=== PATIENT | female | born 1955 | race Caucasian/White ===

== ENCOUNTER 2025-03-27 11:03 | Outpatient (NON) | payer SELFPAY ==
[2025-03-27 11:13] LABS: Add Urine Microscopic? YES; Appearance Urine Clear (Clear); Bilirubin Urine Negative (Negative); Blood Urine 2+ (Negative); Color Urine Light Yellow (Yellow); Glucose Urine UA Negative (Negative); Ketones Urine Negative (Negative); Leukocyte Esterase Ur Trace (Negative); Nitrate Urine Negative (Negative); Protein Urine Negative (Negative); Specific Grav Ur 1.025 (1.010-1.020); Urobilinogen Urine 0.2 mg/dL (0.2-1.0)
[2025-03-27 11:23] LABS: Bacteria Urine Trace /hpf; Squamous Epithelial Cell Urine Few /hpf (Few); WBC Urine 0-3 /hpf (0-3)
== END 2025-03-27 11:04 | disposition home or self-care (01) ==
PROVIDERS: PCP Family Medicine; Visit Provider Family Medicine
DX: N39.0 Urinary tract infection, site not specified (principal)
CPT/HCPCS: 81001; 87086; 87181

== ENCOUNTER 2025-07-18 07:18 | Outpatient (NON) | payer MEDICARE, SELFPAY ==
[2025-07-18 08:48] LABS: Hematocrit 38.0 % (35.0-42.0); Hemoglobin 12.1 g/dL (11.7-13.8); Mean Corpuscular HGB Conc 31.8 g/dL (32-36); Mean Corpuscular Hemoglobin 32.1 pg (27.0-31.0); Mean Corpuscular Volume 100.8 fL (78.0-102.0); Platelet Count Result 169 K/mm3 (150-420); Red Blood Count 3.77 M/mm3 (4.20-5.40); White Blood Count 7.1 K/mm3 (4.8-10.8)
[2025-07-18 08:54] LABS: Alanine Aminotransferase 8 U/L (6-35); Albumin Level 3.6 g/dL (3.5-5.1); Alkaline Phosphatase 66 U/L (38-126); Aspartate Amino Transferase 24 U/L (14-36); Bilirubin,Total 0.6 mg/dL (0.2-1.3); Blood Urea Nitrogen 7 mg/dL (7-17); Calcium 9.9 mg/dL (8.4-10.2); Carbon Dioxide 30 mmol/L (22-30); Cholesterol 230 mg/dL (0-200); Estimated Glomerular Filt Rate > 60; Glucose 76 mg/dL (65-110); HDL Direct 54 mg/dL; Total Protein 5.5 g/dL (6.3-8.2); Triglycerides 175 mg/dL (<150)
[2025-07-18 09:26] LABS: Thyroid Stimulating Hormone 2.150 uIU/mL (0.465-4.680)
[2025-07-18 09:35] LABS: Anion Gap 10 mmol/L (4-12); Chloride 97 mmol/L (98-107); Osmolality Calculated 281 mOsm/kg (285-295); Potassium 4.1 mmol/L (3.4-5.0); Sodium 137 mmol/L (137-145)
[2025-07-18 10:01] LABS: Vitamin B12 > 1000.0 pg/mL (239-931)
[2025-07-18 10:46] LABS: Hemoglobin A1C < 4.7 % (<5.7)
== END 2025-07-18 07:19 | disposition home or self-care (01) ==
LOC: CHSLAB 07:25
PROVIDERS: PCP Family Medicine
DX: J96.01 Acute respiratory failure with hypoxia (principal); F33.3 Major depressive disorder, recurrent, severe with psychotic symptoms; I50.30 Unspecified diastolic (congestive) heart failure; I50.9 Heart failure, unspecified; J44.9 Chronic obstructive pulmonary disease, unspecified; Z13.1 Encounter for screening for diabetes mellitus
CPT/HCPCS: 36415; 80053; 80061; 82607; 82746; 83036; 84436; 84443; 85027

== ENCOUNTER 2025-08-02 00:15 | Emergency (ER) | payer MEDICARE, SELFPAY ==
[2025-08-02] VITALS (58 sets, daily range): BP systolic 44–142; BP diastolic 18–100; PULSE 51–132; RESP 7–22; TEMP 36.6; O2SAT 65–100
--- NOTE | ~2025-08-02 | XR_ITS ---
EXAMINATION: XR chest 1V portable DATE: 08/02/2025 00:56 INDICATION: Unresponsive TECHNIQUE: frontal view of the chest was obtained. COMPARISON: None FINDINGS: Costochondral calcifications project over the medial aspect of the mid to lower lungs. Linear discoid atelectasis/scarring at the medial left lower lung zone. No pulmonary edema, pleural effusion or pneumothorax. The cardiomediastinal silhouette is normal. Mild upper thoracic levoscoliosis with mild spondylosis. IMPRESSION: 1. Linear discoid atelectasis/scarring at the left lower lung zone. Reviewed, dictated and finalized at location A.
--- NOTE | ~2025-08-02 | XR_ITS ---
EXAMINATION: XR chest ET placement DATE: 08/02/2025 02:31 INDICATION: Endotracheal tube placement TECHNIQUE: frontal view of the chest was obtained. COMPARISON: Chest radiograph dated 08/02/2025 FINDINGS: Endotracheal tube tip 5 mm above the sly. Nasogastric tube with proximal side-port below level of the gastroesophageal junction distal tip collimated beyond the inferior margin of the field of imaging. Mild increased interstitial pattern in the bilateral infrahilar regions more prominent on the left. No pleural effusion or pneumothorax. Heart size is normal. IMPRESSION: 1. Endotracheal tube tip 5 mm above the sly. Could consider withdrawal by 1 cm. 2. Increased infrahilar interstitial pattern which could be due to mild pulmonary edema, aspiration or pneumonia. Reviewed, dictated and finalized at location A. IMPRESSION: 1. Endotracheal tube tip 5 mm above the sly. Could consider withdrawal by 1 cm. 2. Increased infrahilar interstitial pattern which could be due to mild pulmona ry edema, aspiration or pneumonia.
--- NOTE | ~2025-08-02 | XR_ITS ---
EXAMINATION: XR abdomen gastric tube insert DATE: 08/02/2025 00:56 INDICATION: Nasogastric tube placement TECHNIQUE: A supine view of the abdomen and lower chest was obtained for evaluation of feeding tube placement. COMPARISON: None. FINDINGS: Nasogastric tube tip in proximal side port in the distal body of the gas distended stomach. There is additional gas scattered throughout multiple loops of large and small bowel in the abdomen and pelvis without tiki dilation and with favor ileus over obstruction. Advanced left hip osteoarthritis with destructive change with loss of bone stock at the cephalad third of the femoral head and at the superior left acetabulum. There is secondary to superolateral subluxation of the femoral head within the enlarged acetabulum. IMPRESSION: 1. Nasogastric tube in stomach. 2. Gaseous distention of the stomach and gas throughout multiple loops of bowel which are not frankly dilated with differential including ileus or early/partial small bowel obstruction. 3. Advanced left hip osteoarthritis. Reviewed, dictated and finalized at location A. IMPRESSION: 1. Nasogastric tube in stomach. 2. Gaseous distention of the stomach and gas throughout multiple loops of bowel which are not frankly dilated with differential including ileus or early/parti al small bowel obstruction. 3. Advanced left hip osteoarthritis.
--- NOTE | ~2025-08-02 | CT_ITS ---
EXAMINATION: CT brain wo con DATE: 08/02/2025 03:50 INDICATION: Unresponsiveness TECHNIQUE: Computed tomography (CT) of the head was performed without intravenous contrast. Sagittal and coronal reconstructions were performed. The mA was adjusted according to patient size. Iterative reconstruction technique was employed. The dose-length product was 605.33 mGy-cm. COMPARISON: None FINDINGS: No fracture. No acute intracranial hemorrhage, acute infarction or abnormal extra axial fluid collection. Symmetric prominence of the sulci and subarachnoid spaces overlying the convexities consistent with mild age-appropriate diffuse cerebral volume loss. Ventricles are normal and symmetric. No mass/mass effect. Small amount of dependently layering mucus/fluid in the left sphenoid sinus and posterior most right ethmoid air cell. The orbits and mastoid air cells are normal. IMPRESSION: 1. Normal aging brain. Reviewed, dictated and finalized at location A. IMPRESSION: 1. Normal aging brain.
--- NOTE | 2025-08-02 00:20 | PC.NURSE ---
SEVERAL ATTEMPTS HAVE BEEN MADE TO CONTACT .
--- NOTE | 2025-08-02 00:21 | PC.NURSE ---
JACOB WITH RT AT THE BEDSIDE
--- NOTE | 2025-08-02 00:22 | PC.NURSE ---
BLOOD GLUCOSE 178
[2025-08-02] MEDS: SUCCINYLCHOLINE CHLORIDE 20 MG/ML 10 ML VIAL 100 MG IV PUSH (00:26)
[2025-08-02] MEDS: ETOMIDATE 20 MG/10 ML AMPUL IV PUSH (00:26)
--- NOTE | 2025-08-02 00:27 | PC.NURSE ---
DR JAIN AND RT AT THE BEDSIDE FOR INTUBATION.
--- NOTE | 2025-08-02 00:29 | PC.NURSE ---
INTUBATION COMPLETED BY DR JAIN. 7.5 ETT TUBE, 23 AT THE LIP. + COLOR CHANGE , + AUSCULTATION TO ALL MOFFETT.
--- NOTE | 2025-08-02 00:35 | PC.NURSE ---
DIFFICULTY WITH VENTILATION. SWITCHED TO BAG MASK, CONTINUES TO BE DIFFICULTY TO BAG. DR JAIN HAS DECIDED TO REMOVE ETT TUBE.
--- NOTE | 2025-08-02 00:36 | PC.NURSE ---
LMA PLACED BY DR JAIN, +COLOR CHANGE, +AUSCULTATION OF LUNGS.
--- NOTE | 2025-08-02 00:42 | PC.NURSE ---
NG TUBE 14 F PLACED TO RIGHT NARE, +ASPIRATION AND AUSCULATION
--- NOTE | 2025-08-02 00:44 | PC.NURSE ---
XRAY AT THE BEDSIDE
--- NOTE | 2025-08-02 00:45 | PC.NURSE ---
POLICE SENT TO ADDRESS ON FILE TO ATTEMPT TO FIND .
[2025-08-02] MEDS: SODIUM CHLORIDE 0.9% IV 1,000 ML 999 ML IV CONT (00:47)
[2025-08-02] MEDS: PROPOFOL IV EMULSION 100 ML 1.58 MG IV CONT (00:52)
--- NOTE | 2025-08-02 00:57 | PC.NURSE ---
HAYDE WITH LAB UNABLE TO DRAW BLOOD. ARTERIAL BLOOD DRAWN FROM LEFT GROIN BY DR JAIN. BLOOD WORK GIVEN TO HAYDE WHO IS IN THE ROOM
--- NOTE | 2025-08-02 01:15 | ED_ITS ---
HPI - SOB/Dyspnea General Chief Complaint: Altered Mental Status Stated Complaint: UNRESPONSIVE Time Seen by Provider: 08/02/25 01:14 Source: EMS Mode of arrival: EMS Limitations: altered mental status and clinical condition History of Present Illness HPI Narrative: patient is a 70-year-old female from the local custod[place] having respiratory failure on presentation to the emergency room. She was unconscious at time of examination. patient is a partial DNR with intubation acceptable but CPR not desired. MD elicited complaint: shortness of breath Pertinent past history: COPD Onset (ago): hour(s) ( One) Context: other ( patient presents to the emergency room respiratory failure) Timing: constant Severity: severe Exacerbating factors: nothing Relieving factors: nothing Known history of: COPD Associated symptoms: denies other symptoms Treatment prior to arrival: oxygen Related Data Home oxygen amount: 3 liters Allergies Allergy/AdvReac Type Severity Reaction Status Date / Time No Known Allergies Allergy Verified 08/02/25 01:59 Review of Systems 2 Review of Systems: All systems reviewed & are unremarkable except as noted in HPI and below Constitutional: Constitutional: Reports no additional constitutional complaints Eyes: Eyes: Reports no additional eye complaints ENT: Reports system reviewed and no additional complaints, except as documented Cardiovascular: Cardiovascular: Reports no additional cardiovascular complaints Respiratory: Respiratory: Reports no additional respiratory complaints Gastrointestinal: Gastrointestinal: Reports no additional gastrointestinal complaints Genitourinary: Genitourinary: Reports no additional female genitourinary complaints Musculoskeletal: Musculoskeletal: Reports no additional musculoskeletal complaints Integumentary/Breasts: Skin/Breast: Reports system reviewed and no additional complaints, except as docu Neurologic: Reports system reviewed and no additional complaints, except as documented Psychiatric: Psychiatric: Reports no additional psychiatric complaints Endocrine: Endocrine: Reports no additional endocrine complaints Hematologic/Lymphatic: Hematologic/Lymphatic: Reports no additional hematologic/lymphatic complaints Allergic/Immunologic: Allergic/Immunologic: Reports no additional allergic/immunologic complaints Exam 2 Const: General: ill appearing Nutritional Appearance: well nourished L imitations: altered mental status and other limitations ( Clinical condition) HENMT: Head: normal to inspection Ears: external ears normal F zac/Nose/Sinus: Normal external nose present Eyes: Conjunctivae: conjunctivae normal Pupils: Equal, round and reactive pupils present EOM: EOMs intact bilaterally Neck: Neck: normal visual inspection Chest: Chest palpation & inspection: normal inspection of the chest Resp: Effort & Inspection: abnormal respiratory effort, labored, retractions, tachypneic and uses accessory muscles Auscultation: not clear to auscultation bilaterally, no crackles, no rales, rhonchi, no wheezes, breath sounds absent and lung sounds not diminished Cardio: Rate: tachycardic Rhythm: regular rhythm Heart sounds: no murmurs GI: Inspection: non-distended GI Palp: Yes Soft to palpation, No Tenderness to palpation present (GI) and No Guarding due to palpation present (GI) A uscultation: bowels sounds not normal and Hypoactive bowel sounds present : General: Yes bladder normal to palpation Back/Spine/Pelvis: Back: no CVA tenderness Skin: General skin exam: pallor Rashes: no rashes Wounds: no wounds Neuro: General: No patient oriented x3 ( unconscious), moves all extremities, no meningeal signs, no focal motor deficits and CN's II-XI intact bilaterally Other: fast exam negative, NIH is 0, GCS is 5 Extrem: General: normal to inspection Psych: Mental Status: mental status grossly normal Affect: normal affect Attitude: cooperative Course Vital Signs Vital signs: Vital Signs Pulse Rate 132 H 08/02/25 00:15 Respiratory Rate 7 L 08/02/25 00:15 Blood Pressure 142/90 H 08/02/25 00:15 Pulse Oximetry 65 L 08/02/25 00:15 Oxygen Flow Rate 15 08/02/25 00:15 Temperature 36.6 C 08/02/25 00:17 Pulse Rate 83 08/02/25 04:46 Respiratory Rate 16 08/02/25 04:46 Blood Pressure 129/77 08/02/25 04:45 Pulse Oximetry 100 08/02/25 04:45 Oxygen Delivery Mechanical Ventilation 08/02/25 04:45 Oxygen Flow Rate 15 08/02/25 00:17 Fraction of Inspired Oxygen 40 08/02/25 03:54 Procedures Other Procedure Procedure 1: Other Procedure: 1. Intubation: etomidate 20 mg plus succinylcholine 100 mg, video glide scope with ET tube 7.5, color change to yellow, condensation in the tube, breath sounds heard bilateral, chest x-ray shows ET tube in place; patient started to desaturate and I changed the ET tube to LMA with good results; in time, I used a bougie to make a place for the ETT in the trachea after removing the LMA and placing the new 7.5 ET tube over the bougie and into the airway; chest x-ray shows ET tube in good place as well as NG tube placed by nursing and color change to yellow with condensation seen in the tube and bilateral breath sounds heard; patient tolerated procedure well and no complications except difficulty with the 1st ET tube that required LMA and further exchange for another ET tube which is working well at this time and documented in place by chest x-ray; AC setting for event as well as parameters given to pulmonary therapist (see notes for actual values) 2. Femoral Stick: left femoral vein approached by me with large-bore needle and syringe for blood draw with good results; patient tolerated procedure well and no complications; we were able to get all the blood needed for this patient MDM - SOB/Dyspnea MDM Narrative Medical decision making narrative: patient is a 70-year-old female with respiratory distress and failure with EMS arrival to the ER. ACLS protocol. Partial DNR with intubation acceptable but CPR unacceptable. Intubate. Femoral stick for labs. Vent. Sepsis protocol. Transfer patient for higher level medical care. Lab Data Attestation: I reviewed the patient's lab results. 08/02/25 01:19 08/02/25 01:19 Labs: Lab Results 08/02/25 08/02/25 08/02/25 Range/Units 00:22 01:19 01:20 WBC 14.6 H (4.8-10.8) K/mm3 RBC 4.16 L (4.20-5.40) M/mm3 Hgb 13.5 (11.7-13.8) g/dL Hct 43.0 H (35.0-42.0) % MCV 103.4 H (78.0-102.0) fL MCH 32.5 H (27.0-31.0) pg MCHC 31.4 L (32-36) g/dL RDW 13.2 (11.6-14.4) % Plt Count 203 (150-420) K/mm3 MPV 11.5 (9.2-11.8) fl Immature Gran % (Auto) 0.7 H (0.0-0.0) % Neut % (Auto) 62.0 (50.0-70.0) % Lymph % (Auto) 26.4 (18.0-42.0) % [place] % (Auto) 10.3 (2.0-11.0) % Eos % (Auto) 0.1 L (1.0-6.0) % Baso % (Auto) 0.5 (0.0-1.0) % Lymph # (Auto) 3.85 (1.10-4.50) K/mm3 [place] # (Auto) 1.51 H (0.10-0.90) K/mm3 Eos # (Auto) 0.01 L (0.02-0.50) K/mm3 Baso # (Auto) 0.07 (0.00-0.10) K/mm3 Abs Immat Gran (auto) 0.10 H (0.00-0.00) K/mm3 Absolute Neuts (auto) 9.06 H (1.70-7.20) K/mm3 Absolute Nucleated RBC 0.00 (0.00-0.00) K/mm3 Nucleated RBC % 0.0 (0-0.0) % PT 12.0 (9.50-12.1) Seconds INR 1.1 APTT 28.8 (23.9-30.70) Sec Sodium 145 (137-145) mmol/L Potassium 3.6 (3.4-5.0) mmol/L Chloride 105 (98-107) mmol/L Carbon Dioxide 19 L (22-30) mmol/L Anion Gap 21 H (4-12) mmol/L BUN 15 D (7-17) mg/dL Creatinine 0.54 L (0.7-1.0) mg/dL Estim Creat Clear Calc Not Reportable Estimated GFR > 60 (59 - ) Glucose 165 H (65-110) mg/dL POC Capillary Glucose 178 H (65-105) mg/dl Calculated Osmolality 304 H (285-295) mOsm/kg Lactic Acid 3.1 H (0.4-2.0) mmol/L Calcium 9.9 (8.4-10.2) mg/dL Total Bilirubin 1.2 (0.2-1.3) mg/dL AST 39 H (14-36) U/L ALT 21 (6-35) U/L Alkaline Phosphatase 86 (38-126) U/L Troponin I 0.088 H* (0.000-0.034) ng/mL NT-Pro-B Natriuret Pep 612 H (19.9-100) pg/mL Total Protein 6.7 (6.3-8.2) g/dL Albumin 4.0 (3.5-5.1) g/dL Urine Color (Yellow) Urine Appearance (Clear) Urine pH (5.0-8.0) Ur Specific [place] (1.010-1.020) Urine Protein (Negative) Urine Glucose (UA) (Negative) Urine Ketones (Negative) Ur Blood (Man) (Negative) Urine Nitrate (Negative) Urine Bilirubin (Negative) Urine Urobilinogen (0.2-1.0) mg/dL Leukocyte Esterase Rfl (Negative) DOMINGUEZ/UL Urine RBC (0-2) /hpf Urine WBC (0-3) /hpf Ur Squamous Epith Cells (Few) /hpf Amorphous Sediment (None) Urine Bacteria (None) /hpf Influenza A (RT-PCR) (Negative) Influenza B (RT-PCR) (Negative) RSV (RT-PCR) (Negative) SARS-CoV-2 RNA (RT-PCR) (Negative) 08/02/25 08/02/25 Range/Units 01:26 01:28 WBC (4.8-10.8) K/mm3 RBC (4.20-5.40) M/mm3 Hgb (11.7-13.8) g/dL Hct (35.0-42.0) % MCV (78.0-102.0) fL MCH (27.0-31.0) pg MCHC (32-36) g/dL RDW (11.6-14.4) % Plt Count (150-420) K/mm3 MPV (9.2-11.8) fl Immature Gran % (Auto) (0.0-0.0) % Neut % (Auto) (50.0-70.0) % Lymph % (Auto) (18.0-42.0) % [place] % (Auto) (2.0-11.0) % Eos % (Auto) (1.0-6.0) % Baso % (Auto) (0.0-1.0) % Lymph # (Auto) (1.10-4.50) K/mm3 [place] # (Auto) (0.10-0.90) K/mm3 Eos # (Auto) (0.02-0.50) K/mm3 Baso # (Auto) (0.00-0.10) K/mm3 Abs Immat Gran (auto) (0.00-0.00) K/mm3 Absolute Neuts (auto) (1.70-7.20) K/mm3 Absolute Nucleated RBC (0.00-0.00) K/mm3 Nucleated RBC % (0-0.0) % PT (9.50-12.1) Seconds INR APTT (23.9-30.70) Sec Sodium (137-145) mmol/L Potassium (3.4-5.0) mmol/L Chloride (98-107) mmol/L Carbon Dioxide (22-30) mmol/L Anion Gap (4-12) mmol/L BUN (7-17) mg/dL Creatinine (0.7-1.0) mg/dL Estim Creat Clear Calc Estimated GFR (59 - ) Glucose (65-110) mg/dL POC Capillary Glucose (65-105) mg/dl Calculated Osmolality (285-295) mOsm/kg Lactic Acid (0.4-2.0) mmol/L Calcium (8.4-10.2) mg/dL Total Bilirubin (0.2-1.3) mg/dL AST (14-36) U/L ALT (6-35) U/L Alkaline Phosphatase (38-126) U/L Troponin I (0.000-0.034) ng/mL NT-Pro-B Natriuret Pep (19.9-100) pg/mL Total Protein (6.3-8.2) g/dL Albumin (3.5-5.1) g/dL Urine Color Yellow (Yellow) Urine Appearance Cloudy A (Clear) Urine pH 5.5 (5.0-8.0) Ur Specific [place] 1.025 H (1.010-1.020) Urine Protein 1+ H (Negative) Urine Glucose (UA) Negative (Negative) Urine Ketones 3+ H (Negative) Ur Blood (Man) 3+ H (Negative) Urine Nitrate Positive H (Negative) Urine Bilirubin 2+ H (Negative) Urine Urobilinogen 1.0 (0.2-1.0) mg/dL Leukocyte Esterase Rfl Negative (Negative) DOMINGUEZ/UL Urine RBC 21-50 H (0-2) /hpf Urine WBC 0-3 (0-3) /hpf Ur Squamous Epith Cells Occasional (Few) /hpf Amorphous Sediment Heavy H (None) Urine Bacteria 1+ H (None) /hpf Influenza A (RT-PCR) Negative (Negative) Influenza B (RT-PCR) Negative (Negative) RSV (RT-PCR) Negative (Negative) SARS-CoV-2 RNA (RT-PCR) Negative (Negative) ABG Data ABG results: 08/02/25 01:50 VBG pH 7.33 VBG pCO2 28.0 L* VBG pO2 187.6 H VBG HCO3 14.5 L O2 Delivery Device Ambu bag O2 Liters/Min 0.0 Imaging Data Attestation: I personally reviewed and interpreted this imaging study as follows: Radiologist's impression: Chest x-ray shows hypoinflation with bronchial vascular crowding (this is when the patient had an LMA); NG tube in place chest x-ray 2. Shows ET tube and NG tube in place x-ray abdomen KUB NG tube in the stomach with distention of the stomach and dilated bowel loops; incidental left femur femoral head subluxation/dislocation CT scan of the head is negative for acute process ECG Data EKG #1: Attestation: I personally reviewed and interpreted this ECG as follows: ECG completion date: 08/02/25 ECG completion time: 01:55 EKG Interpretation: normal rate, sinus rhythm, no ectopy, non-specific ST changes, ST depression ( ischemic demand), normal QRS, normal QT and NL axis Critical Care Time Critical Care Time Critical Care Time: Yes Total Critical Care Time: 60 Restraint Face to Face Eval ED Reason for Restraint Aggressive/Violent ( Patient intubated and medical restraints required to prevent extubation by patient) Evaluation Findings Date Seen by EDP: 08/02/25 Time Seen by EDP: 01:45 Pt's immediate situation:: intubation and restraints needed to prevent extubation by patient (medical restraints) Pt's reaction to intervention:: intubated and sedated Pt's med/behavioral condition:: acute respiratory failure Restraint or Seclusion Need Need to continue or terminate:: continuous restraints to prevent extubation by patient Discharge Plan Discharge Clinical Impression: Acute exacerbation of chronic obstructive pulmonary disease, Elevated troponin, Increased anion gap metabolic acidosis Respiratory failure Qualifiers: Chronicity: acute Respiratory failure complication: hypoxia Qualified Code(s): J96.01 - Acute respiratory failure with hypoxia Closed dislocation of left hip Qualifiers: Encounter type: initial encounter Qualified Code(s): S73.005A - Unspecified dislocation of left hip, initial encounter Patient Disposition: Acute Care Hospital Condition: Critical Patient Language: Slovak Follow-up/Referrals: Pierre Valladares MD [Primary Care Provider, Internal Medicine] Time of Disposition: 02:42
--- NOTE | 2025-08-02 01:18 | ECG_ITS ---
Test Date: 2025-08-02 01:24:34 Measurements Intervals Peak Rate: 81 P: 84 PA: 164 QRS: 74 QRSD: 90 T: 49 QT: 342 QTc: 398 Interpretive Statements SINUS RHYTHM POSSIBLE RIGHT ATRIAL ENLARGEMENT [0.25mV P-WAVE] POSSIBLE LEFT ATRIAL ENLARGEMENT [-0.1mV P-WAVE IN V1/V2] DIFFUSE ST DEPRESSIONS, CONSIDER ISCHEMIA No previous ECG available for comparison Electronically Signed On 08-02-2025 10:52:50 CDT by Telly Barboza M.D.
[2025-08-02] MEDS: SODIUM CHLORIDE 0.9% IV 1,000 ML 150 ML IV CONT (01:43)
[2025-08-02 01:47] LABS: Anion Gap 21 mmol/L (4-12); Blood Urea Nitrogen 15 mg/dL (7-17); Calcium 9.9 mg/dL (8.4-10.2); Carbon Dioxide 19 mmol/L (22-30); Chloride 105 mmol/L (98-107); Estimated Glomerular Filt Rate > 60; Glucose 165 mg/dL (65-110); Osmolality Calculated 304 mOsm/kg (285-295); Potassium 3.6 mmol/L (3.4-5.0); Sodium 145 mmol/L (137-145)
[2025-08-02 01:48] LABS: Alanine Aminotransferase 21 U/L (6-35); Albumin Level 4.0 g/dL (3.5-5.1); Aspartate Amino Transferase 39 U/L (14-36); Bilirubin,Total 1.2 mg/dL (0.2-1.3); Total Protein 6.7 g/dL (6.3-8.2)
[2025-08-02 01:49] LABS: Alkaline Phosphatase 86 U/L (38-126); NT Pro B Type Natriuretic Pept 612 pg/mL (19.9-100)
[2025-08-02 01:50] LABS: Troponin I 0.088 ng/mL (0.000-0.034)
[2025-08-02 01:57] LABS: Hematocrit 43.0 % (35.0-42.0); Hemoglobin 13.5 g/dL (11.7-13.8); Red Blood Count 4.16 M/mm3 (4.20-5.40); White Blood Count 14.6 K/mm3 (4.8-10.8)
[2025-08-02 01:58] LABS: Mean Corpuscular HGB Conc 31.4 g/dL (32-36); Mean Corpuscular Hemoglobin 32.5 pg (27.0-31.0); Mean Corpuscular Volume 103.4 fL (78.0-102.0); Nucleated Red Blood Cells Perc 0.0 % (0-0.0); Platelet Count Result 203 K/mm3 (150-420)
[2025-08-02 01:59] LABS: Immature Granulocyte Percent A 0.7 % (0.0-0.0); Lymphocytes Absolute Auto 3.85 K/mm3 (1.10-4.50); Nucleated Red Blood Cells Absolute Auto 0.00 K/mm3 (0.00-0.00)
--- NOTE | 2025-08-02 02:02 | PC.NURSE ---
DR JAIN PREPARING TO CHANGE OUT LMA TO ET TUBE
[2025-08-02 02:05] LABS: HCO3 VBG 14.5 mEq/l (24.0-30.0); PO2 VBG 187.6 mmHg (35.0-45.0); pH VBG 7.33 (7.33-7.43)
[2025-08-02 02:06] LABS: PCO2 VBG 28.0 mmHg (42.0-48.0)
--- NOTE | 2025-08-02 02:09 | PC.NURSE ---
HYPERVENTILATING PATIENT FOR ETT TUBE PLACEMENT
[2025-08-02 02:10] LABS: Liters per Minute 0.0 LPM
--- NOTE | 2025-08-02 02:17 | PC.NURSE ---
7.5 ETT TUBE PLACED. +COLOR CHANGE, + AUSCULTATION. NO DIFFICULTIES WITH MECHANICAL VENTILATION.
--- NOTE | 2025-08-02 02:20 | PC.NURSE ---
BLOOD PRESSURE DROPPED TO 44/18. PROPOFOL STOPPED AT THIS TIME. NS CHANGED FROM 150 TO BOLUS
--- NOTE | 2025-08-02 02:22 | PC.NURSE ---
XRAY AT THE BEDSIDE. DR JAIN CONFIRMED ETT TUBE PLACEMENT AND NG TUBE PLACEMENT
[2025-08-02 02:23] LABS: INR 1.1; Partial Thromboplastin Time 28.8 Sec (23.9-30.70); Prothrombin Time 12.0 Seconds (9.50-12.1)
[2025-08-02 02:26] LABS: Add Urine Microscopic? YES; Glucose Urine UA Negative (Negative); Leukocyte Esterase Ur Negative LEU/UL (Negative); Nitrate Urine Positive (Negative); Specific Grav Ur 1.025 (1.010-1.020)
--- NOTE | 2025-08-02 02:30 | PC.NURSE ---
POLICE HAVE NOT BEEN ABLE TO MAKE CONTACT WITH . ADDRESS ON FILE IS NOT CORRECT
[2025-08-02 02:33] LABS: Appearance Urine Cloudy (Clear)
[2025-08-02 02:58] LABS: Influenza A QL RT-PCR Negative (Negative); Influenza B QL RT-PCR Negative (Negative); RSV RNA, RT-PCR Negative (Negative); SARS-CoV-2 RNA PCR Negative (Negative)
[2025-08-02] MEDS: PIPERACILLIN/TAZOBACTAM SOD 3.375 GM in SODIUM CHLORIDE 0.9% IV 50 ML 100 ML IVPB (03:04)
[2025-08-02] MEDS: Please enter patient height and weight for medication dosing 1 EACH XX (03:20)
--- NOTE | 2025-08-02 03:52 | PC.NURSE ---
PATIENT WAS TRANSPORTED TO CT WITH MONITOR, RESPIRATORY, TECH AND RN. RETURNED TO ROOM WITHOUT DIFFICULTY
--- NOTE | 2025-08-02 04:01 | PC.NURSE ---
THERE IS APPROX 20-30 ML OF URINE OUTPUT IN THE BRANNON BAG AT THIS TIME
--- NOTE | 2025-08-02 04:16 | PC.NURSE ---
PATIENT POSITIONED INTO A 45 DEGREE ANGLE. INTUBATED. PROPOFOL AND NS INFUSING TO 20G LEFT HAND. 24 G TO RIGHT HAND SALINE LOCKED. BRANNON HAS MINIMAL URINE OUTPUT.
--- NOTE | 2025-08-02 04:47 | PC.NURSE ---
PATIENT HAS EYES OPEN, LOOKING AROUND THE ROOM. RAISING HER LEFT ARM. PROPOFOL TITRATED.
[2025-08-02] MEDS: ENOXAPARIN 60 MG/0.6 ML SYRINGE 50 MG SUB-Q (05:35)
--- NOTE | 2025-08-05 13:45 | PC.NURSE ---
URINE AND BLOOD CULTURE REPORT FAXED TO [facility] [phone]
--- NOTE | 2025-08-06 17:00 | PC.NURSE ---
FINAL URINE CULTURE SHOWS SERRATIA MARCESCENS. PRELIMINARY BLOOD CULTURE SHOWS STAPH AURICULARIS. BOTH REPORTS FAXED TO NURSE [facility] FOR PT AT [facility].
--- NOTE | 2025-08-08 14:42 | PC.NURSE ---
PT DISCHARGED FROM HOSPITAL FINAL BLOOD CULTURE REPORT FAXED TO DR BREWER'S OFFICE SPOKE WITH HIS INDUSTRIAL MAINTENANCE TECH
== END 2025-08-02 06:20 | disposition short-term general hospital (02) ==
PROVIDERS: Emergency Provider Emergency Medicine; PCP Family Medicine
DX: J96.01 Acute respiratory failure with hypoxia (principal); S73.005A Unspecified dislocation of left hip, initial encounter; J44.1 Chronic obstructive pulmonary disease with (acute) exacerbation; R79.89 Other specified abnormal findings of blood chemistry; E87.20 Acidosis, unspecified; Z20.822 Contact with and (suspected) exposure to COVID-19; X58.XXXA Exposure to other specified factors, initial encounter
CPT/HCPCS: 31500; 36415; 70450; 71045; 80053; 81001; 82803; 82948; 83605; 83880; 84484; 85025; 85610; 85730; 87040; 87077; 87086; 87186; 87637; 93005; 96361; 96365; 96372; 96375; 99291; J0330; J1650; J2543; J2704; J2919; J7030